=== PATIENT | male | born 1990 | race Caucasian/White ===

== ENCOUNTER 2017-08-16 21:14 | Emergency (ER) | payer OTHER ==
[~2017-08-16] VITALS: Ht 182.9 cm; Wt 84.2 kg
[2017-08-16 21:18] VITALS: BP 159/84
[2017-08-16] MEDS ORDERED: LIDOCAINE 1%, 20ML ONE (22:06)
[2017-08-16] MEDS ORDERED: DIPH,PERTUSS(ACELL),TET VAC/PF 0.5 ML IM-VACC ONE ×2 (22:30→22:41)
[2017-08-16] MEDS ORDERED: LIDOCAINE 1%, 20ML SQ ONE (22:30)
== END 2017-08-16 23:23 | disposition home or self-care (01) ==
LOC: ED 23:17
DX: S64.491A Injury of digital nerve of left index finger, initial encounter (principal); S61.211A Laceration without foreign body of left index finger without damage to nail, initial encounter; W29.8XXA Contact with other powered hand tools and household machinery, initial encounter; Y93.89 Activity, other specified; Y92.098 Other place in other non-institutional residence as the place of occurrence of the external cause; Y99.8 Other external cause status
CPT/HCPCS: 12001; 73140; 90471; 90715; 99284; J3490

== ENCOUNTER 2020-10-09 17:48 | Emergency (ER) | payer MEDICAID, OTHER ==
[~2020-10-09] VITALS: Ht 177.8 cm; Wt 99.3 kg
--- NOTE | 2020-10-09 17:52 | NUR ---
PT BIB EMS FROM NURSING HOME. PT HAS HAD N/V SINCE SATURDAY, UNABLE TO TOLERATE PO. DENIES CP. DENIES ALCHOLOL OR DRUG USE.
[2020-10-09] MEDS ORDERED: SODIUM CHLORIDE FLUSH 10ML SYR IVF ONE (18:30)
[2020-10-09] MEDS ORDERED: SODIUM CHLORIDE 0.9% 1,000ML IVBOLUS ONE (18:30)
[2020-10-09 18:54] LABS: BASOPHILS % (AUTO) 1 % (0-1); EOSINOPHILS % (AUTO) 3 % (1-7); LYMPHOCYTES % (AUTO) 14 % (22-44); MEAN CORPUSCULAR HEMOGLOBIN 32.5 pg (27.5-34.5); MEAN CORPUSCULAR HGB CONC 34.4 g/dL (33.2-36.2); MEAN PLATELET VOLUME 9.9 fL (7.4-10.4); MONOCYTES % (AUTO) 6 % (2-9); NEUTROPHILS % (AUTO) 76 % (42-75); PLATELET COUNT 222 x10^3/uL (130-400); RED BLOOD COUNT 5.33 x10^6/uL (4.38-5.82); RED CELL DISTRIBUTION WIDTH 13.3 % (9.4-14.8)
[2020-10-09 18:55] LABS: MD NO
[2020-10-09 19:01] LABS: ALANINE AMINOTRANSFERASE 284 U/L (12-78); ALBUMIN 3.8 g/dL (3.4-5.0); ANION GAP 9 mmol/L (5-15); CALCIUM 9.3 mg/dL (8.5-10.1); CHLORIDE 106 mmol/L (98-107)
[2020-10-09 19:03] LABS: ALKALINE PHOSPHATASE 117 U/L (45-117); BILIRUBIN,TOTAL 1.1 mg/dL (0.2-1.0); TOTAL PROTEIN 8.2 g/dL (6.4-8.2)
--- NOTE | 2020-10-09 19:07 | NUR ---
Report received from JENNIFER Gtz. This RN to assume care.
[2020-10-09] MEDS ORDERED: OMNIPAQUE 350 MG/ML, 100ML BOTTLE ONE (19:59)
--- NOTE | 2020-10-09 20:30 | NUR ---
Need urine; patient states he is unable to urinate at this time.
--- NOTE | 2020-10-09 22:00 | NUR ---
Urine collected and sent to lab.
[2020-10-09 22:13] LABS: MICROSCOPIC NOT IND
--- NOTE | 2020-10-09 22:41 | NUR ---
Discharge instructions given. All questions and concerns addressed. Patient ambulatory with a stedy gait. Belongings with patient. Patient in custody with deputy accompanying patient.
[2020-10-09 22:49] VITALS: BP 131/77
== END 2020-10-09 23:23 | disposition home or self-care (01) ==
LOC: ED 18:39
DX: R10.32 Left lower quadrant pain (principal); R11.2 Nausea with vomiting, unspecified; R19.7 Diarrhea, unspecified; R94.5 Abnormal results of liver function studies; J45.909 Unspecified asthma, uncomplicated
CPT/HCPCS: 36415; 74177; 80053; 81003; 83690; 85025; 96360; 99285; J7030; Q9967